=== PATIENT | female | born 1985 | race Hispanic/Latino ===

== ENCOUNTER 2022-03-13 16:57 | Inpatient (IN) | payer OTHER, MEDICAID ==
[~2022-03-13] VITALS: Ht 157.5 cm; Wt 71.8 kg
[2022-03-13] MEDS ORDERED: ONDANSETRON 4MG TABLET PO ONE (17:30)
[2022-03-13] MEDS ORDERED: FAMOTIDINE 20MG TAB PO ONE (17:30)
[2022-03-13] MEDS ORDERED: DICYCLOMINE HCL 10 MG/5 ML ML PO ONE (17:30)
[2022-03-13] MEDS ORDERED: MAG/ALUM/SIMETH 30 ML UDCUP PO ONE (17:30)
[2022-03-13] MEDS ORDERED: LIDOCAINE HCL 2% VISCOUS 15 ML UDCUP PO ONE (17:30)
[2022-03-13 17:33] LABS: APPEARANCE,URINE CLEAR (CLEAR); BILIRUBIN,URINE NEGATIVE (NEGATIVE); COLOR,URINE LIGHT-YELLOW (YELLOW); GLUCOSE, URINE (UA) NEGATIVE (NEGATIVE); KETONES,URINE NEGATIVE (NEGATIVE); LEUKOCYTE ESTERASE ,URINE 25 Leu/uL (NEGATIVE); NITRATE,URINE NEGATIVE (NEGATIVE); OCCULT BLOOD,URINE NEGATIVE (NEGATIVE); PH,URINE 6.5 (5.0-8.0); PROTEIN,URINE NEGATIVE (NEGATIVE); UROBILINOGEN,URINE 0.2 mg/dL (0.2-1.0)
[2022-03-13 17:37] LABS: BACTERIA,URINE RARE /HPF (None Seen); MUCUS,URINE FEW LPF (None Seen); SQUAMOUS EPITHELIAL CELL,UR FEW /HPF (0-2)
[2022-03-13 17:38] LABS: HCG,QUALITATIVE URINE NEGATIVE (NEGATIVE)
[2022-03-13 17:55] LABS: EOSINOPHILS % (AUTO) 1.2 % (0.0-8.0); HEMATOCRIT 37.7 % (36-48); MEAN CORPUSCULAR HEMOGLOBIN 29.1 pg (27.0-33.0); MEAN CORPUSCULAR HGB CONC 32.6 g/dL (32.0-36.0); MEAN CORPUSCULAR VOLUME 89.3 fL (79-99); MONOCYTES % (AUTO) 8.4 % (3.0-13.0); PLATELET COUNT (AUTO) 306 K/uL (130-400); RED BLOOD CELL COUNT(AUTO) 4.22 MIL/uL (4.00-5.50); RED CELL DISTRIBUTION WIDTH 13.3 % (11.0-15.5); WHITE BLOOD COUNT (AUTO) 5.7 K/uL (4.8-10.8)
[2022-03-13 18:02] LABS: CREATININE 0.7 mg/dL (0.5-1.5); POTASSIUM 3.7 mmol/L (3.5-5.1)
[2022-03-13 18:07] LABS: ALBUMIN 3.7 g/dL (3.5-5.0); TOTAL PROTEIN, SERUM 7.7 g/dL (6.0-8.3)
[2022-03-13] MEDS ORDERED: ONDANSETRON 4MG INJ ONE (19:21)
[2022-03-13] MEDS ORDERED: MORPHINE 4 MG SYG ONE (19:22)
[2022-03-13] MEDS ORDERED: GUAIFENESIN-DM 200/20 MG 10 ML PO PRN (19:30)
[2022-03-13] MEDS ORDERED: NITROGLYCERIN 0.4 MG SL TAB SL PRN (19:30)
[2022-03-13] MEDS ORDERED: DIPHENHYDRAMINE HCL 25 MG CAPSULE PO PRN (19:30)
[2022-03-13] MEDS ORDERED: MORPHINE 2 MG SYG IV PRN (19:30)
[2022-03-13] MEDS ORDERED: ONDANSETRON 4MG INJ IV PRN (19:30)
[2022-03-13] MEDS ORDERED: MAG/ALUM/SIMETH 30 ML UDCUP PO PRN (19:30)
[2022-03-13] MEDS ORDERED: LACTULOSE 20 GM/30 ML UDCUP PO PRN (19:30)
[2022-03-13] MEDS: MORPHINE 4 MG SYG IV PRN (19:48)
[2022-03-13] MEDS: 0.9%NACL 1000ML 1,000 ML IV SCH (21:11)
[2022-03-13] MEDS: ZOSYN 3.375GM+NS 50ML 50 ML IV SCH (21:11)
[2022-03-13] MEDS: FAMOTIDINE 20MG VIAL IV SCH (21:11)
[2022-03-14 00:03] VITALS: BP 126/79
[2022-03-14] MEDS: MORPHINE 4 MG SYG IV PRN ×2 (00:13→04:15)
[2022-03-14 03:52] VITALS: BP 100/46
[2022-03-14] MEDS: ZOSYN 3.375GM+NS 50ML 50 ML IV SCH ×3 (04:15→20:30)
[2022-03-14] MEDS: 0.9%NACL 1000ML 1,000 ML IV SCH ×2 (05:30→12:25)
[2022-03-14 08:00] VITALS: BP 104/62
[2022-03-14 09:02] LABS: HEMATOCRIT 35.2 % (36-48); MEAN CORPUSCULAR HEMOGLOBIN 29.3 pg (27.0-33.0); MEAN CORPUSCULAR HGB CONC 32.7 g/dL (32.0-36.0); MEAN CORPUSCULAR VOLUME 89.8 fL (79-99); RED BLOOD CELL COUNT(AUTO) 3.92 MIL/uL (4.00-5.50); RED CELL DISTRIBUTION WIDTH 13.3 % (11.0-15.5); WHITE BLOOD COUNT (AUTO) 5.2 K/uL (4.8-10.8)
[2022-03-14] MEDS: FAMOTIDINE 20MG VIAL IV SCH ×2 (09:10→20:30)
[2022-03-14 09:17] LABS: CREATININE 0.8 mg/dL (0.5-1.5); POTASSIUM 3.7 mmol/L (3.5-5.1)
[2022-03-14 11:42] VITALS: BP 99/52
[2022-03-14 16:00] VITALS: BP 102/52
[2022-03-14 19:00] VITALS: BP 133/70
[2022-03-14] MEDS: ACETAMINOPHEN 325 MG TAB PO PRN (22:06)
[2022-03-15] VITALS: BP 105/49
[2022-03-15] MEDS: 0.9%NACL 1000ML 1,000 ML IV SCH ×3 (01:25→21:30)
[2022-03-15 04:00] VITALS: BP 109/58
[2022-03-15] MEDS: ZOSYN 3.375GM+NS 50ML 50 ML IV SCH ×3 (04:23→20:42)
[2022-03-15 05:12] LABS: HEMATOCRIT 36.4 % (36-48); MEAN CORPUSCULAR HEMOGLOBIN 28.8 pg (27.0-33.0); MEAN CORPUSCULAR HGB CONC 32.1 g/dL (32.0-36.0); MEAN CORPUSCULAR VOLUME 89.7 fL (79-99); RED BLOOD CELL COUNT(AUTO) 4.06 MIL/uL (4.00-5.50); RED CELL DISTRIBUTION WIDTH 13.1 % (11.0-15.5); WHITE BLOOD COUNT (AUTO) 4.6 K/uL (4.8-10.8)
[2022-03-15 05:22] LABS: CREATININE 0.8 mg/dL (0.5-1.5)
[2022-03-15 08:00] VITALS: BP 104/52
[2022-03-15] MEDS: FAMOTIDINE 20MG VIAL IV SCH ×2 (09:00→20:42)
[2022-03-15 12:00] VITALS: BP 97/59
[2022-03-15 16:00] VITALS: BP 101/57
[2022-03-15] MEDS: ACETAMINOPHEN 325 MG TAB PO PRN (20:43)
[2022-03-15 21:20] VITALS: BP 102/68
[2022-03-16] VITALS: BP 103/52
[2022-03-16 04:00] VITALS: BP 106/42
[2022-03-16] MEDS: ZOSYN 3.375GM+NS 50ML 50 ML IV SCH (04:18)
[2022-03-16] MEDS: 0.9%NACL 1000ML 1,000 ML IV SCH (04:19)
[2022-03-16 06:09] LABS: CREATININE 0.6 mg/dL (0.5-1.5); POTASSIUM 4.1 mmol/L (3.5-5.1)
[2022-03-16 06:24] LABS: HEMATOCRIT 34.5 % (36-48); MEAN CORPUSCULAR HEMOGLOBIN 29.3 pg (27.0-33.0); MEAN CORPUSCULAR HGB CONC 33.3 g/dL (32.0-36.0); MEAN CORPUSCULAR VOLUME 87.8 fL (79-99); RED BLOOD CELL COUNT(AUTO) 3.93 MIL/uL (4.00-5.50); RED CELL DISTRIBUTION WIDTH 12.8 % (11.0-15.5); WHITE BLOOD COUNT (AUTO) 6.3 K/uL (4.8-10.8)
[2022-03-16 08:00] VITALS: BP 98/45
[2022-03-16] MEDS: FAMOTIDINE 20MG VIAL IV SCH (10:15)
[2022-03-16 12:00] VITALS: BP 106/66
[2022-03-16] MEDS ORDERED: OMEP40CA21 PO (12:08)
== END 2022-03-16 13:52 | disposition home or self-care (01) | DRG 445 ==
LOC: EDH 16:57 → EDHIP 19:13 → 3BH 23:55
PROVIDERS: ADMIT Hospitalist; ATTEND Hospitalist
DX: K80.00 Calculus of gallbladder with acute cholecystitis without obstruction (principal); E87.1 Hypo-osmolality and hyponatremia; Z20.822 Contact with and (suspected) exposure to COVID-19
CPT/HCPCS: 36415; 76705; 78226; 80048; 80053; 81001; 81025; 83690; 85025; 85027; 87635; A9537; G0378; J2270; J2405; J2543; J3490; J7030; Q0162; Q0163

== ENCOUNTER 2022-04-05 08:30 | Day surgery (SDC) | payer OTHER, MEDICAID ==
[2022-04-04 11:28] LABS: EOSINOPHILS % (AUTO) 0.9 % (0.0-8.0); HEMATOCRIT 37.9 % (36-48); LYMPHOCYTES % (AUTO) 33.6 % (21.0-51.0); MEAN CORPUSCULAR HEMOGLOBIN 29.1 pg (27.0-33.0); MEAN CORPUSCULAR HGB CONC 32.5 g/dL (32.0-36.0); MEAN CORPUSCULAR VOLUME 89.6 fL (79-99); MONOCYTES % (AUTO) 5.1 % (3.0-13.0); NEUTROPHILS % (AUTO) 60.1 % (40.0-77.0); PLATELET COUNT (AUTO) 323 K/uL (130-400); RED BLOOD CELL COUNT(AUTO) 4.23 MIL/uL (4.00-5.50); RED CELL DISTRIBUTION WIDTH 12.8 % (11.0-15.5); WHITE BLOOD COUNT (AUTO) 6.7 K/uL (4.8-10.8)
[2022-04-04 11:43] LABS: CREATININE 0.7 mg/dL (0.5-1.5); POTASSIUM 3.9 mmol/L (3.5-5.1)
[2022-04-04 12:16] VITALS: BP 118/66
[2022-04-05] VITALS (16 sets, daily range): BP systolic 102–136; BP diastolic 48–82
[~2022-04-05] VITALS: Ht 157.5 cm; Wt 70.1 kg
[~2022-04-05 08:30] MED LIST: ACET-2247 PO; OMEP40CA21 PO
[2022-04-05 09:04] LABS: ALBUMIN 4.3 g/dL (3.5-5.0); BILIRUBIN,DIRECT 0.2 mg/dL (0.0-0.3); TOTAL PROTEIN, SERUM 8.3 g/dL (6.0-8.3)
[2022-04-05] MEDS ORDERED: BUPIVACAINE/PF 0.5% 30ML VIAL ONE (09:05)
[2022-04-05] MEDS ORDERED: LACTATED RINGERS 1000ML 1,000 ML IV ONE (09:44)
[2022-04-05] MEDS ORDERED: MIDAZOLAM HCL 1 MG/ML 2ML VIAL ONE ×2 (11:16→11:47)
[2022-04-05] MEDS ORDERED: CEFAZOLIN SODIUM 1 GM VIAL ONE (11:40)
[2022-04-05] MEDS ORDERED: SUCCINYLCHOLINE 200MG/10ML SYR ONE (11:46)
[2022-04-05] MEDS ORDERED: PROPOFOL 10 MG/ML 20ML VIAL IV ONE (11:47)
[2022-04-05] MEDS ORDERED: FENTANYL CITRATE PF 50 MCG/1 ML 2ML VIAL ONE ×2 (11:47→13:21)
[2022-04-05] MEDS ORDERED: ROCURONIUM 10MG/1ML SYR 10 MG/ML ML ONE (11:47)
[2022-04-05] MEDS ORDERED: ACET-2079 PO (11:59)
[2022-04-05] MEDS ORDERED: GLYCOPYRROLATE 1 MG/5 ML SYRINGE ONE (12:48)
[2022-04-05] MEDS ORDERED: NEOSTIGMINE 5MG/5ML SYR IV ONE (12:49)
[2022-04-05] MEDS ORDERED: MEPERIDINE-PF 25 MG/ML SYG ONE ×2 (13:02→13:21)
[2022-04-05] MEDS ORDERED: KETOROLAC 30MG VIAL (30MG/ML) ONE (13:20)
== END 2022-04-05 15:24 | disposition home or self-care (01) ==
LOC: DAH 08:30
PROVIDERS: ATTEND Specialist
DX: K80.10 Calculus of gallbladder with chronic cholecystitis without obstruction (principal); Z20.822 Contact with and (suspected) exposure to COVID-19; K82.8 Other specified diseases of gallbladder; Z79.01 Long term (current) use of anticoagulants; Z79.899 Other long term (current) drug therapy
CPT/HCPCS: 80048; 84703; 85025; 87426; 36415 ×2; 47562; 80076; A6260; A4663; J7030; A4215 ×2; J7120; J3010 ×2; J0690; J0330; J3490 ×2; J2710; J2250 ×2; J2704; J1885; J2175 ×2; A6206; A4649 ×3; A4223; A4222; A4221; A4600 ×2

== ENCOUNTER → 2022-12-01 | Outpatient (CLI) | payer OTHER, MEDICAID ==
[~2022-12-01] MED LIST changes: +ACET-2079 PO
[2022-12-01 09:15] LABS: BASOPHILS % (AUTO) 0.3 % (0.0-5.0); EOSINOPHILS % (AUTO) 1.7 % (0.0-8.0); HEMATOCRIT 39.5 % (36-48); LYMPHOCYTES % (AUTO) 26.6 % (21.0-51.0); MEAN CORPUSCULAR HEMOGLOBIN 29.3 pg (27.0-33.0); MEAN CORPUSCULAR HGB CONC 31.9 g/dL (32.0-36.0); MEAN CORPUSCULAR VOLUME 91.9 fL (79-99); MONOCYTES % (AUTO) 6.5 % (3.0-13.0); NEUTROPHILS % (AUTO) 64.5 % (40.0-77.0); PLATELET COUNT (AUTO) 300 K/uL (130-400); WHITE BLOOD COUNT (AUTO) 7.6 K/uL (4.8-10.8)
[2022-12-01 09:54] LABS: ALBUMIN 3.8 g/dL (3.5-5.0); CREATININE 0.8 mg/dL (0.5-1.5); POTASSIUM 3.7 mmol/L (3.5-5.1); THYROID STIMULATING HORMONE 5.78 uIU/mL (0.36-3.74); TOTAL PROTEIN, SERUM 7.7 g/dL (6.0-8.3)
== END | disposition home or self-care (01) ==
LOC: LAB 08:38
PROVIDERS: ATTEND Family Medicine
DX: Z13.29 Encounter for screening for other suspected endocrine disorder (principal); Z13.1 Encounter for screening for diabetes mellitus; Z13.220 Encounter for screening for lipoid disorders; E55.9 Vitamin D deficiency, unspecified
CPT/HCPCS: 36415; 80053; 80061; 82306; 84439; 84443; 85025

== ENCOUNTER 2023-05-21 18:19 | Emergency (ER) | payer MEDICAID, OTHER ==
[~2023-05-21] VITALS: Ht 157.5 cm; Wt 72.6 kg
[2023-05-22] MEDS ORDERED: KETOROLAC 30MG VIAL (30MG/ML) IVP ONE
[2023-05-22] MEDS ORDERED: FAMOTIDINE 20MG VIAL IV ONE
[2023-05-22] MEDS ORDERED: METOCLOPRAMIDE 10 MG/2 ML VIAL IVP ONE
[2023-05-22] MEDS ORDERED: MELO-106 PO (01:25)
[2023-05-22] MEDS ORDERED: CYCL10TA16 PO (01:25)
[2023-05-22 01:37] VITALS: BP 132/74; PULSE 88; RESP 18; O2SAT 99
== END 2023-05-22 01:39 | disposition home or self-care (01) ==
LOC: EDH 18:19
DX: S13.4XXA Sprain of ligaments of cervical spine, initial encounter (principal); Z79.899 Other long term (current) drug therapy; Z90.710 Acquired absence of both cervix and uterus; Y04.8XXA Assault by other bodily force, initial encounter; Y93.89 Activity, other specified; Y92.89 Other specified places as the place of occurrence of the external cause; Y99.8 Other external cause status
CPT/HCPCS: 99285; 70450; 71045; 72125; 96374; J1885

== ENCOUNTER → 2024-04-25 | Outpatient (CLI) | payer OTHER ==
[~2024-04-25] MED LIST changes: +CYCL10TA16 PO; +MELO-106 PO
[2024-04-25 09:32] LABS: BASOPHILS # (AUTO) 0.02 K/uL (0.00-0.20); BASOPHILS % (AUTO) 0.3 % (0.0-5.0); EOSINOPHILS # (AUTO) 0.13 K/uL (0.00-0.70); EOSINOPHILS % (AUTO) 1.9 % (0.0-8.0); HEMATOCRIT 40.2 % (36-48); IMMATURE GRANULOCYTE ABSOLUTE 0.03 K/uL (0-1); LYMPHOCYTES # (AUTO) 2.1 K/uL (1.0-4.8); LYMPHOCYTES % (AUTO) 30.3 % (21.0-51.0); MEAN CORPUSCULAR HEMOGLOBIN 29.3 pg (27.0-33.0); MEAN CORPUSCULAR HGB CONC 32.1 g/dL (32.0-36.0); MEAN CORPUSCULAR VOLUME 91.2 fL (79-99); MONOCYTES # (AUTO) 0.5 K/uL (0.1-1.0); MONOCYTES % (AUTO) 6.9 % (3.0-13.0); NEUTROPHILS # (AUTO) 4.1 K/uL (1.8-7.7); NEUTROPHILS % (AUTO) 60.2 % (40.0-77.0); PLATELET COUNT (AUTO) 351 K/uL (130-400); RED BLOOD CELL COUNT(AUTO) 4.41 MIL/uL (4.00-5.50); RED CELL DISTRIBUTION WIDTH 13.1 % (11.0-15.5); WHITE BLOOD COUNT (AUTO) 6.8 K/uL (4.8-10.8)
[2024-04-25 09:44] LABS: HEMOGLOBIN A1C 5.3 % (4.0-6.0)
[2024-04-25 10:00] LABS: ALBUMIN 3.7 g/dL (3.5-5.0); BILIRUBIN,TOTAL 0.4 mg/dL (0.2-1.0); CREATININE 0.8 mg/dL (0.5-1.0); THYROID STIMULATING HORMONE 9.11 uIU/mL (0.36-3.74); TOTAL PROTEIN, SERUM 7.6 g/dL (6.0-8.3)
== END | disposition home or self-care (01) ==
LOC: LAB 08:50
PROVIDERS: ATTEND Family Medicine
DX: Z13.220 Encounter for screening for lipoid disorders (principal); Z13.0 Encounter for screening for diseases of the blood and blood-forming organs and certain disorders involving the immune mechanism; Z13.29 Encounter for screening for other suspected endocrine disorder; E55.9 Vitamin D deficiency, unspecified; Z13.1 Encounter for screening for diabetes mellitus
CPT/HCPCS: 36415; 80053; 80061; 82306; 83036; 83525; 84439; 84443; 85025

== ENCOUNTER → 2025-01-09 | Outpatient (CLI) | payer OTHER ==
[2025-01-09 12:29] LABS: IMMATURE GRANULOCYTE ABSOLUTE 0.01 K/uL (0-1); NUCLEATED RED BLOOD CELLS 0.0 % (0.0-0.19); PLATELET COUNT (AUTO) 363 K/uL (130-400); RED BLOOD CELL COUNT(AUTO) 4.39 MIL/uL (4.00-5.50); RED CELL DISTRIBUTION WIDTH 12.8 % (11.0-15.5); WHITE BLOOD COUNT (AUTO) 7.1 K/uL (4.8-10.8)
[2025-01-09 12:52] LABS: ASPARTATE AMINOTRANSFERASE 17.0 U/L (10-37); CREATININE 0.8 mg/dL (0.5-1.0); GLOMERULAR FILTR. RATE CALC 96.0 mL/min (>90); GLUCOSE,RANDOM 81.0 mg/dL (70-105); LDL DIRECT 89.0 mg/dL (0-99); SODIUM SERUM 138.0 mmol/L (136-145); TOTAL PROTEIN, SERUM 7.7 g/dL (6.0-8.3); UREA NITROGEN, BLOOD 13.0 mg/dL (7-18)
== END | disposition home or self-care (01) ==
LOC: LAB 11:24
PROVIDERS: ATTEND Obstetrics & Gynecology
DX: Z01.419 Encounter for gynecological examination (general) (routine) without abnormal findings (principal); Z3A.00 Weeks of gestation of pregnancy not specified
CPT/HCPCS: 36415; 80050; 80061; 82306; 83036